=== PATIENT | female | born 1945 | race Caucasian/White ===

== ENCOUNTER 2018-03-04 02:26 | Outpatient (CLI) | payer BC, SELFPAY ==
--- NOTE | 2018-03-04 10:45 | DI.MRI_ITS ---
SYMPTOMS/DIAGNOSIS: CERVICAL RADICULOPATHY MRI OF THE CERVICAL SPINE: Routine noncontrast examination was performed. There is normal signal in the spinal cord. No evidence of tonsillar ectopia is seen. At C7-T1, there is no focal disc herniation, central spinal canal or neural foraminal stenosis. At C6-C7, there is prominence of the osteophyte-disc complex, which projects into the central spinal canal. There is mild narrowing of the central spinal canal. There is CSF surrounding the posterior aspect of the spinal cord. No significant neural foraminal stenosis is seen. At C5-C6, there is prominence of the osteophyte-disc complex and effacement of the anterior subarachnoid space. There is CSF seen surrounding the spinal cord. No significant neural foraminal stenosis is seen. At C4-C5, no focal disc herniation, central spinal canal or neural foraminal stenosis is present. At C3-C4, there are hypertrophic changes of the right uncovertebral joint causing mild to moderate right neural foraminal stenosis. No central spinal canal or left neural foraminal stenosis is present. At C2-C3, there is prominence of the left uncovertebral joint, but no significant central spinal canal or neural foraminal stenosis results. Apart from the degenerative endplate signal changes in the cervical spine, marrow signal is within normal limits. IMPRESSION: Multilevel cervical spondylosis. Mild to moderate right neural foraminal stenosis at C3-C4.
== END 2018-03-04 02:46 ==
PROVIDERS: PCP Family Medicine; Visit Provider Family Medicine
DX: M54.12 Radiculopathy, cervical region (principal); M47.22 Other spondylosis with radiculopathy, cervical region; M48.02 Spinal stenosis, cervical region
CPT/HCPCS: 72141

== ENCOUNTER 2018-03-26 15:07 | Outpatient (REF) | payer BC, SELFPAY ==
[2018-03-26 20:01] LABS: Anion Gap 7.7 mmol/L (3-11); BUN 27 mg/dL (7-18); CO2 30.3 mmol/L (21.0-32.0); CREATININE 0.68 mg/dL (0.55-1.02); Calcium 8.4 mg/dL (8.5-10.1); Chloride 106 mmol/L (98-107); Glucose 130 mg/dL (70-100); LDL CHOLESTEROL 104 mg/dL (<100); Potassium 4.4 mmol/L (3.5-5.1); Sodium 144 mmol/L (136-145); TSH 3.11 uIU/mL (0.358-3.74)
== END 2018-03-26 15:27 ==
LOC: NCHCN 15:07
PROVIDERS: PCP Family Medicine; Visit Provider Internal Medicine
DX: E66.9 Obesity, unspecified (principal)
CPT/HCPCS: 80048; 83721; 84443

== ENCOUNTER 2018-05-07 16:42 | Outpatient (REF) | payer BC, SELFPAY ==
[2018-05-07 20:08] LABS: Uric Acid 2.6 mg/dL (2.6-6.0)
[2018-05-07 20:40] LABS: ESR 9 MM/HR (0-30)
[2018-05-08 16:15] LABS: CRP, High Sensitivity 0.85 mg/L
[2018-05-11 10:42] LABS: Rheumatoid Factor 8 IU/mL (<12.5)
== END 2018-05-07 17:02 ==
LOC: NCHCN 16:42
PROVIDERS: PCP Family Medicine; Visit Provider Internal Medicine
DX: R03.0 Elevated blood-pressure reading, without diagnosis of hypertension (principal); Z00.00 Encounter for general adult medical examination without abnormal findings; E66.9 Obesity, unspecified
CPT/HCPCS: 85652; 86141; 84550; 86431

== ENCOUNTER 2018-08-26 10:40 | Outpatient (CLI) | payer BC, SELFPAY ==
--- NOTE | 2018-08-26 10:16 | DI.RAD_ITS ---
SYMPTOMS/DIAGNOSIS: RIGHT ARM NUMBNESS, ? TOS RIGHT RIBS AND PA CHEST: No priors. The heart size and pulmonary vasculature are within normal limits. The lungs are clear. No effusions or pneumothoraces are identified. The visualized right ribs are unremarkable. IMPRESSION: Negative examination.
== END 2018-08-26 11:00 ==
PROVIDERS: PCP Internal Medicine; Visit Provider Student in an Organized Health Care Education/Training Program
DX: R20.0 Anesthesia of skin (principal)
CPT/HCPCS: 71046; 71100

== ENCOUNTER 2018-11-17 12:15 | Day surgery (SDC) | payer BC, SELFPAY ==
[2018-11-17 12:43] VITALS: BP 128/72; PULSE 65; RESP 16; TEMP 35.9; O2SAT 97
[2018-11-17] MEDS: Clindamycin 300 MG CAP 600 MG PO (13:31)
--- NOTE | 2018-11-17 13:35 | W.PM.DSUDISC ---
Discharge Plan Disposition Patient Disposition: HOME Condition: Good Discharge Details Reason For Visit: ECTR Attending Provider: Cassius Obando Primary Care Provider: Glynn Eubanks Home Meds and New Rx's Prescriptions: New hydrocodone-acetaminophen 5-325 mg tablet 1 tab PO Q4H PRN (Reason: pain) Qty: 6 RF: 0 acetaminophen 500 mg tablet 500 mg PO Q6H PRN PRN (Reason: pain) Qty: 60 RF: 3 ibuprofen 600 mg tablet 600 mg PO TID PRNQty: 60 RF: 3 Continued multivitamin tablet 1 tab PO DAILY RF: 0 aspirin 650 mg Tablet,Delayed Release (Dr/Ec) 650 mg PO PRNRF: 0 Discontinued ibuprofen 800 mg tablet 800 mg PO PRN RF: 0 Discharge Instructions Stand Alone Forms: Gisella Degroot Tunnel Release Referrals: Cassius Obando MD [ [facility] STAFF PHYSICIAN] - Equipment/Supplies: Sling Activity:: Elevate Remove Dressings/Wound Care:: 48 hours Shower/Bathe:: 48 hours Diet:: As Tolerated Discharge Orders Discharge Orders: Discharge Order (Routine); Ordered 11/17/18 Ordered By: Cassius Obando DS: Diagnosis Discharge Diagnosis (1) Right carpal tunnel syndrome: Status: Acute
[2018-11-17] MEDS: Lidocaine 1% Multi-Dose 50 ML VIAL (13:45)
[2018-11-17] MEDS: Sodium Bicarbonate 50 MEQ/50 ML VIAL (13:45)
--- NOTE | 2018-11-19 07:19 | ROE_ITS ---
Date of service: 11/17/18 Time of Service: 13:16 Operative Note DATE OF PROCEDURE: 11/17/18 PRE-OP DIAGNOSIS: Right Carpal Tunnel Syndrome POST-OP DIAGNOSIS: same PROCEDURE: Right Endoscopic Carpal Tunnel Release SURGEON: Cassius Obando ANESTHESIA: local ESTIMATED BLOOD LOSS: 0 PATHOLOGY: none sent TOURNIQUET TIME: 5 COMPLICATIONS: None Patient was transported to: same day Patient's condition: stable Indications: I have seen Lorelei in clinic for symptoms of carpal tunnel syndrome. The numbness, tingling, and pain limited function. Clinical exam findings with nerve conduction tests confirmed the diagnosis of carpal tunnel syndrome. Nonoperative measures such as bracing, time, activity modifications had been tried but disability and pain persisted. I discussed carpal tunnel release with the patient. I reviewed the risks of the procedure to include, but not limited to, bleeding, infection, pain, stiffness, incomplete release, damage to nerves or vessels, persistent numbness, recurrence. Despite these risks, the patient elected to proceed. Findings: There was tightened carpal tunnel. This was dilated and released successfully with the endoscopic with increased space within the tunnel. The antebrachial fascia was released proximally freeing the median nerve at the wrist. Procedure Description: Lorelei was greeted in the preoperative holding area where the correct side was identified and marked. The consent was reviewed with the patient and signed. The history and physical was updated. All questions were answered. Lorelei was taken back to the operating room. The patient was placed into the supine position on the operating room table with the right arm on an arm board. A nonsterile tourniquet was placed high onto the arm. All bony prominences were well padded. Prophylactic antibiotics in the form of Clindamycin were administered. The right arm was then prepped with Chloraprep and draped in a standard fashion with stockinette and extremity drape. A timeout to confirm correct identity, side and site, procedure, allergies, anesthesia, and medical concerns was performed. The surgical site was marked in the volar wrist creases in line with the radial border of the fourth ray. This area was anesthetized with approximately 6cc of 1% Lidocaine. The limb was then exsanguinated with an Esmarch. The skin was incised with a 15 blade, approximately 1cm. The skin only was cut and the deeper tissue was dissected bluntly with a tenotomy scissor, avoiding passing nerve and venous structures. The fascia was penetrated and opened bluntly. A two-prong skin hook was placed under this proximal fascial edge. A series of hamate finders were used to identify and dilate the carpal tunnel. Synovial elevator was used to free synovial attachments to the underside of the transverse carpal ligament. My thumb was kept in the palm to gloria the distal extent of the carpal tunnel and correctly position the hand. The Microaire endoscope was inserted without difficulty and without resistance. Excellent visualization showed horizontally running fibers of the transverse carpal ligament (TCL). The distal extent of the TCL was visualized and the end of the scope palpated with the thumb. The blade was elevated and withdrawn from distal to proximal. The TCL was split into two flaps. The endoscope was reinserted to confirm complete release and any remnant ligament was incised. The scope was withdrawn and the proximal aspect of the carpal tunnel was grossly inspected and appeared release with the median nerve visible. The antebrachial fascia at the level of the wrist was then freed from the overlying skin and then the underlying median nerve with blunt dissection. This was transected longitudinally for about 3cm proximal to the wrist incision. The wound was then irrigated with easy flow of irrigant distally and proximally. The incision was closed with a single 4-0 Nylon suture. The wound was dressed with Xeroform, Gauze, Kerlix and Gerard. The tourniquet was deflated with the initial dressing and held with some pressure. Blood flow returned easily to all digits with capillary refill less than 2 seconds. The patient tolerated the procedure well and was returned to the Same Day Surgery area in a stable c ondition suffering no known complication.
== END 2018-11-17 14:38 | disposition home or self-care (01) ==
PROVIDERS: PCP Internal Medicine; Visit Provider Student in an Organized Health Care Education/Training Program
PROC: 01N54ZZ Release Median Nerve, Percutaneous Endoscopic Approach (ICD-10-PCS; CPT 29848; principal; 2018-11-17 13:45)
DX: G56.01 Carpal tunnel syndrome, right upper limb (principal)
CPT/HCPCS: 29848; L3650

== ENCOUNTER 2018-12-07 14:57 | Outpatient (CLI) | payer BC, SELFPAY ==
--- NOTE | 2018-12-07 14:45 | DI.RAD_ITS ---
SYMPTOM/DIAGNOSIS: F/U LT KNEE DJD LEFT KNEE: Two views were performed. There is severe narrowing of the medial femoral tibial joint with varus angulation. There is periarticular spurring as well as sclerosis of the chondral cyst formation. Spurring is also seen at the lateral femoral condyle and patellofemoral joint. IMPRESSION: Severe degenerative changes of the medial femoral tibial joint.
--- NOTE | 2018-12-07 14:45 | DI.RAD_ITS ---
SYMPTOM/DIAGNOSIS: F/U LEFT KNEE DJD STANDING ALIGNMENT: AP views were performed from above the iliac crest through the ankles. The hip joint spaces are well maintained. There is mild acetabular spurring. At the level of the femoral heads there is approximately 10 mm of leg length discrepancy, with the femoral head projecting higher than the left. There is narrowing of the medial femoral tibial joint space of the knees, left greater than right. There are mild degenerative changes of both ankles. IMPRESSION: Severe degenerative changes of the medial femoral tibial joint of the left knee and leg length discrepancy.
== END 2018-12-07 15:17 ==
PROVIDERS: PCP Internal Medicine; Visit Provider Student in an Organized Health Care Education/Training Program
DX: M17.12 Unilateral primary osteoarthritis, left knee (principal); M21.70 Unequal limb length (acquired), unspecified site
CPT/HCPCS: 73560; 77073

== ENCOUNTER 2019-01-28 14:03 | Outpatient (CLI) | payer BC, SELFPAY ==
--- NOTE | 2019-01-28 14:04 | HPE_ITS ---
Date of service: 01/28/19 Assessment and Plan (1) Arthritis of left knee: Current visit: Yes Status: Chronic Left total knee replacement. Details of surgery were discussed with patient as well as risks and pertinent anatomy. All questions were answered. History of Present Illness Chief Complaint: Left knee pain Narrative: Lorelei is a 73-year-old female who comes in today for preop history and physical for a left total knee replacement. She has had pain in her left knee for many years now, but it has been getting worse over the last year or 2. She states that she has pain whenever she is on her feet for long periods of time, but he gets much worse when she is walking downstairs. She has done physical therapy which has not helped but the pain, but she feels as though has kept her range of motion pretty good. Anti- inflammatories do help somewhat with pain relief, but they do not bring the pain down to an acceptable level. She thinks she has tried injections in the past, and they have not been specifically effective. She has had x-rays taken which show severe arthritis especially in the medial compartment with a complete loss of joint space in the medial compartment. She has a varus type deformity to her knee. There are degenerative changes throughout the knee as well in the lateral compartment and patellofemoral compartment. Since she has exhausted all conservative treatments at this time, Dr. Obando does offer a left total knee replacement, and she is anxious to proceed. Pertinent Surgical Information Lorelei has taken pain medicine in the past for previous surgeries, and states that she does not like the way Percocet or Vicodin make her feel. She would prefer to use Dilaudid for pain management postop. She also states that she has an allergy to cephalosporins which give her a rash, so she would prefer not to have a cephalosporin for preop antibiotic. Her preop orders have been changed to vancomycin 1.5 g. Patient denies history of hypertension, CVA, ME, angina, asthma, COPD, renal or liver disorders, hepatitis, bleeding disorders, diabetes, immune or thyroid disorders. No complications from anesthesia. Review of Systems Constitutional Denies fever(s) ENT Denies dizziness and Denies sore throat Cardiovascular Denies chest pain, Denies palpitations and Denies dyspnea Respiratory Denies cough and Denies dyspnea Gastrointestinal Denies abdominal pain, Denies melena, Denies hematochezia, Denies diarrhea, Denies nausea and Denies vomiting Genitourinary Denies hematuria and Denies dysuria Neurologic Denies dizziness Endocrine Denies palpitations COUNTS INCLUDE 234 BEDS AT THE [facility] Medical History (Updated 01/28/19 @ 14:09 by ARNOL Tobias) Atrial fibrillation (Chronic) Borderline hypertension (Acute) Left foot drop (Acute) Surgical History (Updated 01/28/19 @ 14:08 by ARNOL Tobias) H/O lumbosacral spine surgery (Acute) History of hernia repair (Chronic) Right carpal tunnel syndrome (Inactive) S/P small bowel resection (Acute) Social History Smoking/Tobacco Use Status: Never Alcohol Intake: current Alcohol Intake frequency: holidays/special occasions only Alcohol type: wine Substance use type: does not use current occupation: Nurse - Works at [employer] Do you feel safe at home: Yes Do you feel safe in your relationship?: Yes Meds Home Medications Medication Instructions Recorded Confirmed Type multivitamin 1 tab PO DAILY 04/09/18 01/28/19 History aspirin 325 mg PO PRN 11/17/18 01/28/19 History ibuprofen 600 mg PO TID PRN #60 tab 11/17/18 01/28/19 Rx Allergies Allergy/AdvReac Type Severity Reaction Status Date / Time morphine Allergy Severe Verified 01/28/19 13:02 Penicillins Allergy Severe Anaphylaxsi Verified 01/28/19 13:02 s Cephalosporins Allergy Intermediate Skin Rash Verified 01/28/19 13:02 Exam [facility] Head: normocephalic and atraumatic General nose exam: no nasal discharge Throat: uvula midline and no uvular edema Other: soft palate rises symmetrically, no erythema Eyes Conjunctivae: conjunctivae normal Sclera: sclerae normal Pupils: PERRL Resp Effort & Inspection: normal respiratory effort Auscultation: clear to auscultation bilaterally and no wheezes Cardio Rate: regular rate Rhythm: regular rhythm Heart Sounds: S1 normal, S2 normal and no murmurs GI Palpation: soft, no hepatosplenomegaly and nontender Auscultation: normal bowel sounds
[2019-01-28 15:48] LABS: HCT 41.3 % (36.0-46.0); HGB 13.6 g/dL (12.0-15.5); Mean Corp. HGB Concentration 32.9 g/dL (32.0-36.0); Mean Corpuscular Hemoglobin 32.1 pg (27.0-33.0); Mean Corpuscular Volume 97.4 fL (80-95); Mean Platelet Volume 10.5 fL (8.0-11.0); Platelet Count 309 x1000/uL (130-400); RBC 4.24 m/cumm (4.00-5.20); RBC Distribution Width 13.1 % (11.7-14.6); White Blood Cell Count 7.28 k/cumm (4.4-10.8)
[2019-01-28 16:30] LABS: Anion Gap 8.8 mmol/L (3-11); BUN 21 mg/dL (7-18); CO2 28.2 mmol/L (21.0-32.0); CREATININE 0.75 mg/dL (0.55-1.02); Calcium 8.7 mg/dL (8.5-10.1); Chloride 106 mmol/L (98-107); Glucose 103 mg/dL (70-100); Potassium 4.2 mmol/L (3.5-5.1); Sodium 143 mmol/L (136-145)
== END 2019-01-28 14:23 ==
PROVIDERS: PCP Internal Medicine; Visit Provider Student in an Organized Health Care Education/Training Program
DX: M25.562 Pain in left knee (principal); M17.12 Unilateral primary osteoarthritis, left knee; Z01.812 Encounter for preprocedural laboratory examination; Z01.818 Encounter for other preprocedural examination
CPT/HCPCS: 36415; 80048; 85027; NC

== ENCOUNTER 2019-02-02 05:56 | Inpatient (IN) | payer BC, SELFPAY ==
[2019-01-28 14:10] VITALS: BP 112/72; PULSE 72; RESP 17; TEMP 37; O2SAT 98
[2019-01-28 15:59] VITALS: BP 112/72; PULSE 72; RESP 17; TEMP 37; O2SAT 98
[2019-02-02] VITALS (13 sets, daily range): BP systolic 89–142; BP diastolic 46–84; PULSE 59–75; RESP 12–22; TEMP 36–37; O2SAT 90–96
[2019-02-02] MEDS: Celecoxib 200 MG CAP 400 MG PO (06:28)
[2019-02-02] MEDS: Acetaminophen 500 MG TAB 1000 MG PO ×3 (06:28→19:04)
[2019-02-02] MEDS: Gabapentin 300 MG CAP PO ×2 (06:29→21:57)
[2019-02-02] MEDS: Lactated Ringers 1,000 ML 80 ML IV ×2 (06:29→22:00)
[2019-02-02] MEDS: Bupivacaine LIPOSOME/PF 133 MG/10 ML VIAL IJ ×2 (07:43→09:30)
[2019-02-02] MEDS: Bupivacaine 0.5% Pres-Free 30 ML VIAL (07:43)
[2019-02-02] MEDS: Ketorolac 30 MG/ML VIAL (09:30)
[2019-02-02] MEDS: Bupivacaine 0.25% Pres-Free 30 ML VIAL (09:30)
[2019-02-02] MEDS: Normal Saline 20 ML VIAL (09:31)
--- NOTE | 2019-02-02 11:46 | W.PM.OP ---
Date of service: 02/02/19 Time of Service: 10:10 Operative Note DATE OF PROCEDURE: 02/02/19 PRE-OP DIAGNOSIS: Left knee osteoarthritis POST-OP DIAGNOSIS: same PROCEDURE: Left Total Knee Replacement SURGEON: Cassius Obando VITREO RETINAL SURGEON: Nyla Schmidt ANESTHESIA: GETA and regional PATHOLOGY: none sent TOURNIQUET TIME: 34 COMPLICATIONS: None Patient was transported to: PACU Patient's condition: stable Implants: 1. Depuy Attune Posterior Stabilized Femoral Component, Size 6 Narrow 2. Depuy Attune Fixed Platform Tibial Component, Size 4 3. Depuy Attune 6x6 Fixed, Stabilized Poly 4. Depuy Attune Patellar Component, Size 38mm Indications: I have seen Lorelei in clinic for symptoms of left knee arthritis, confirmed with radiographic findings. She has exhausted nonoperative methods and was having significant limitations in daily function and desired better function and less pain. I discussed the technical details of a knee replacement. I explained the risks of the procedure to include, but not limited to, bleeding, infection, pain, stiffness, fracture, damage to nerves and vessels, damage to muscles and tendons, loosening, need for repeat procedure, blood clot and cardiopulmonary demise. Despite these risks, Lorelei elected to proceed. Findings: There was significant signs of arthritis throughout the knee. Procedure Description: Lorelei was greeted in the preoperative holding area where the correct side was identified and marked. The consent was reviewed with the patient and signed. The history and physical was updated. All questions were answered. Preoperative mediacations were administered: Acetaminophen 1000mg, Celebrex 400mg, and Gabapentin 300mg. An adductor canal block was then administered by the anesthesia team in the PACU. Lorelei was taken back to the operating room. A spinal anesthestic was then administered. While the spinal had good CSF flow it did not set up at the surgical location and she was converted to a general anesthetic. The patient was placed into the supine position on the operating room table. A nonsterile tourniquet was placed high onto the leg but only used for cementing. Posts were placed for positioning during the procedure. All bony prominences were well padded. Prophylactic antibiotics in the form of Vancomycin were administered. 1g of Tranxemic Acid was given intravenously within 30 minutes of incision. The left leg was then prepped with Chloraprep and draped in a standard fashion with impervious stockinette and extremity drape with Iodine impregnated skin protection. A timeout to confirm correct identity, side and site, procedure, allergies, anesthesia, and medical concerns was performed. With the knee in some flexion, a midline incision was made overlying the knee. Full thickness skin flaps were raised once the extensor mechanism was encountered. These were raised medially and laterally. Any bleeding was controlled with electrocautery. Once the extensor mechanism was fully exposed, a medial parapatellar arthrotomy was performed in a flexed position. All bleeding from the arthrotomy and the geniculate arteries was coagulated. A medial subperiosteal peel was performed with electrocautery to the midcoronal plane. Due to the significant varus deformity the entire medial tibial plateau was exposed. The fat pad was removed while keeping the patellar tendon protected. The anterior distal femur synovium was removed for later visualization. The ACL and PCL were resected and the anterior horn of the lateral meniscus was transected. The knee was then flexed with the patella everted. Large osteophytes from the tibia were removed. Large osteophytes from the femur were removed. Using a step drill, and based on preoperative templating, the femoral canal was entered. This was done with a step drill without any difficulty. The intramedullary distal femoral cut guide was inserted, set to a 5 degree valgus cut and 9mm cut thickness. The distal femoral cut guide was then held in position and pinned. With the soft tissues protected, the distal cut was performed. This was passed over a few times to ensure a planar cut. I then turned attention to the tibia. The extramedullary guide was placed onto the leg. The distal aspect was slid medial to adjust for position of center of ankle and stay in line with shaft of the tibia. Approximately 3-5 degrees of posterior slope was kept in the proximal cutting guide. The center of the guide was aligned with the PCL. The stylus was used to assess cut thickness. The medial side, most involved side, was set for a 4mm cut. This was then held in position and pinned into place with 2 additional pins and a cross pin for stability. The medial and lateral collateral ligaments were protected and the cut was performed. With this completed, it was assessed and noted to be of appropriate dimensions. The guide was removed. A spacer block was inserted and the knee was brought into extension. The 6mm spacer block provided full extension, without hyperextension and with stability of both the medial and lateral collateral ligaments was assessed. The pins from the femur and the tibia were then removed. The distal femur was then sized. The anterior stylus was placed onto the lateral ridge of the anterior femur. This indicated a size 6 femur. The external rotation of the guide was adjusted to 5 degrees to match the epicondylar axis, perpendicular to [place]?s line. The 4-in-1 cutting guide was the placed. The posterior medial femur cut was evaluated and appeared of good thickness. The spacer block was inserted underneath the cutting guide and stability was confirmed in 90 degrees of flexion. An ellis wing was used to confirm appropriate position of the anterior cut to avoid notching. This cutting guide was ensured to be flush on the cut surface and then pinned into place with headed pins. While protecting the soft tissues, quad tendon, and collateral ligaments, the anterior and posterior cuts were performed with a saw. The central two pins were removed and the posterior and anterior chamfers were cut next. The notch-cutting guide was placed. This was pinned to lateralize the femoral component as much as possible while keeping it flush on the cut surface. This was then pinned into position. A reciprocating saw was used to make the notch cut. A rasp smoothed the cut surfaces. A trial posterior stabilized femoral component was then inserted, impacted down to the cut surfaces, and the lug holes were drilled. A provisional trial tibial component was placed and the knee was brought through range of motion. There was noted to be excellent extension and flexion. There was no significant instability. The patella was tracking without thumbs. The tibial cut surface was fully exposed. The medial and lateral menisci were removed. The tibia was then sized as a 4. The tibia had been previously marked during trialing to correspond to the center of the tibial component to help with rotation. The trial was aligned to this gloria, approximately rotated to the medial 1/3rd of the tibial tubercle. The trial was pinned into place. The tibia was prepared with a reamer and a keel punch. The knee was then brought into extension and the patella was measured as 25mm. Using the patellar clamp and cut guide, this was resected to a flat surface with at least 13mm of thickness remaining. The size 38mm patella fit the best. This was oriented and then clamped into position. The lugs were drilled. The trial components were removed. The final components, except for the polyethylene were opened on the back table. The periosteal and capsular tissues, especially posteriorly, around the knee were then systematically injected with a periarticular cocktail consisting of 50cc 0.25% Marcaine, 30mg Ketorolac, 20cc of Exparal and 50cc of injectable saline. The tourniquet was then inflated to 275mmHg. The knee was thoroughly irrigated with a pulse lavage and dried. On the back table, with the implants opened, the cement was mixed. 2 batches of antibiotic laden cement were prepared with vacuum assistance. After the cement was ready a small amount was placed on to the back side of the tibial component at the keel. A small amount was placed onto the posterior flange of the femur. Cement was manual pressurized and impregnated into the cut surface of the tibia. The tibial component was then inserted into the cut surface and impacted into position. Excess cement was removed and the component was reimpacted. Again, excess cement was removed and our attention was then turned to the femur. The femoral cut surface was once again dried and cement was manually impacted into the cut surface. The femoral component was lined with the lug holes and impacted. Excess cement was removed. It was ensured to be down against the cut surface. The trial polyethylene was then inserted and the leg was brought out into full extension for the duration of the cement curing process, approximately 15min. Cement was lastly manually impacted into the cut surface of the patella and the patellar button was clamped into position and held. During this process attention was turned to the gutters of the knee and for all interfaces for any excess cement. After the cement had finally cured, approximately 15min, the clamp was removed from the patella and the knee was taken through range of motion. A size 6mm polyethylene component provided the best range of motion and stability with less than 2mm gapping with medial and lateral stress and full extension without significant hyperextension. The patella was tracking with a no-thumbs technique. The trial poly was removed and once again the knee was checked for any loose, excess, or errant cement. The poly component was then inserted and impacted into position after cleaning and drying the tibial tray. The capsule was then reapproximated with a No. 1 Vicryl at multiple locations. The capsule was finally closed with a No. 2 Stratafix, barbed suture. The tourniquet was then released and the arthrotomy appeared watertight without significant bleeding. The second dosing of 1g TXA was started. Deep tissues were then reapproximated with 0 Vicryl and 2-0 Vicryl. The skin was closed with a running 3-0 Monocryl in a subcuticular fashion. This was reinforced with skin glue. A Mepilex silver dressing was applied along with a [id number] BOB wrap. A CryoCuff was applied. Lorelei was transferred to the hospital bed without difficulty an suffering no apparent complication. Lorelei has a good prognosis. Physical therapy will start today and without restrictions, weight-bearing as tolerated. Aspirin 81mg BID will be used for DVT prophylaxis.
--- NOTE | 2019-02-02 14:45 | NUR.NOTE ---
Nursing Note: 11:16 pt transferred from pacu to med surg floor in regular bed. pts daughter with her. Blood pressure 92/55 and o2 sat 90% on room air.
[2019-02-02] MEDS: Normal Saline Flush 10 ML SYR IV ×2 (15:20→21:58)
--- NOTE | 2019-02-02 17:30 | IN_ITS ---
Date of service: 02/02/19 Time of Service: 14:24 PT Notes Inpatient Physical Therapy Evaluation Date: 02/01/2019 2 Referring Doctor: Cassius Obando MD PT Orders: PT CONSULT: S/P left TKA Precautions: Fall. Standard. WBAT on left LE. Patient Profile/Admitting Diagnosis: Patient is a 73-year-old female with primary osteoarthritis of left knee and is status post left total knee arthroplasty on postoperative day 0. PMHX: Medical History (Updated 01/28/19 @ 14:09 by ARNOL Tobias) Atrial fibrillation (Chronic) Borderline hypertension (Acute) Left foot drop (Acute) Surgical History (Updated 01/28/19 @ 14:08 by ARNOL Tobias) H/O lumbosacral spine surgery (Acute) History of hernia repair (Chronic) Right carpal tunnel syndrome (Inactive) S/P small bowel resection (Acute) Social History/Home Situation: Patient lives alone in a 1 floor house with 1 step up to enter without rails. 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 Current Functional Limitations: Need for an assistive device and physical assistance for all transfer and ambulation task performance Equipment Owned/DME: None Subjective: Patient is agreeable to a PT consult. Daughter present throughout session. She reports mild mostly concentrated on the anterior medial aspect of the left knee during weight bearing. She denies headache, chest pain, and dizziness throughout PT consult and treatment. She looks forward to going home the earliest tomorrow morning and stay here overnight in order to assess for response for when anesthesia effect fully wears off. After gait activity she is amazed at how much better she is able to perform pain-free. She looks forward to going back to work full-time as a nurse soon as she is allowed to. Objective: General Observation: Patient seen resting in bed with Cryo/Cuff on left knee. BOB wraps on left lower extremity. TEDS knee-high on the right side. IV in left UE. Antithromboembolic pump on R LE. Mental Status: Alert and oriented x4 Pain: 0/10 at rest. 1/10 with weight bearing concentrated on the anterior medial aspect of left knee ROM: Right Upper Extremity: Shoulder Flexion WFL. Shoulder abduction WFL. Elbow flexion WFL. Wrist flexion WFL. Functional opening and closing of hand WFL. Left Upper Extremity: Shoulder Flexion WFL. Shoulder abduction WFL. Elbow flexion WFL. Wrist flexion WFL. Functional opening and closing of hand WFL. Right Lower Extremity: Hip flexion WFL. Hip abduction WFL. Knee flexion WFL. Ankle dorsiflexion WFL. Ankle plantarflexion WFL. Left Lower Extremity: Hip flexion allows up to 20 degrees beyond horizontal plane while patient is seated at edge of bed. Hip abduction WFL. Knee flexion 0- 90 degrees while seated at edge of bed with left knee suspended, ACD wraps l imiting end of range. Knee extension -5 with mild felt at end of range. Ankle dorsiflexion WFL. Ankle plantarflexion WFL. Strength: Right Upper Extremity: Shoulder flexors 5/5. Shoulder abductors 5/5. Elbow flexors 5/5. Elbow extensors 5/5. Artistic Associate strong. Left Upper Extremity: Shoulder flexors 5/5. Shoulder abductors 5/5. Elbow flexors 5/5. Elbow extensors 5/5. Artistic Associate strong. Right Lower Extremity: Hip flexors 5/5. Hip abductors 5/5. Knee flexors 5/5. Knee extensors 5/5. Ankle dorsiflexors 5/5. Ankle plantarflexors 5/5. Left Lower Extremity:Hip flexors 3-/5. Hip abductors 4/5. Knee flexors 4/5. Knee extensors 3-/5. Ankle dorsiflexors 4/5. Ankle plantarflexors 4/5.Hip flexors 5/5. Sensation: Diminished as to pain and pressure on the left lower extremity from the knee down. Intact on the right LE. Bed Mobility/Transfers: Rolling supervision Supine to sit supervision Sit to supine supervision Sit to stand CGA Stand to sit CGA Bed to chair CGA Chair to bed CGA Gait: Patient was able to tolerate level surface ambulation of 150 feet with front-wheeled walker with CGA and IV pole management of PT and wheelchair follow of daughter initially with patient doing step to gait pattern but then eventually with step through gait pattern without LOB but with minimal L knee buckle at end of activity that patient was able to catch right away. Patient was able to demonstrate full knee extension during mid stance on the left and adequate functional knee flexion throughout swing phase on the left LE. Patient denies shortness of breath, headache, chest pain, and dizziness throughout gait activity. Balance: Static Sitting: Normal Dynamic Sitting: Normal Static Standing: Good Dynamic Standing: Fair Special Tests: Mobility Limitations Standardized Measure [facility] AM-PAC 6 clicks Basic Mobility Inpatient Short Form: Raw Score: 21 CMS Score: 22%deficit Informed Consent/Education: Patient instructed in purpose of PT consult and plan of care. Patient was also educated and trained on performing a ankle pumping x30, bilateral quadriceps setting for 5 months x 10, and heel slides on the left held for 5 counts at the end of range x10. Left knee pain good alignment Assessment: Patient presents with clinical signs and symptoms consistent with current/admitting diagnoses that have resulted to mobility limitations, gait instability, generalized weakness, and impairment of motor control as demonstrated by the following impairment level findings: 1. Decreased strength to B LE major muscle groups 2. Impaired sitting/standing balance 3. Impaired activity tolerance 4. Limitation of joint range of motion in [] Impairments are contributing to the following functional limitations: 1. Dependent bed mobility skills 2. Increased dependence with transfers 3. Inability to safely ambulate without assistive device and physical assistance 4. Increase completion time for mobility ADL performance 5. Increased fall risk 6. Inability to negotiate steps alone safely Patient is assessed as a [] complexity based on the following: History: [] Examination: Demonstrable impairment in strength, balance, and range of motion with underlying impairments and functional limitations as documented above Presentation:Evolving Decision Making: [] Goals: Goals X1 week 1. Supine-Sit independent 2. Sit-Supine independent 3. Sit-Stand independent 4. Stand-Sit independent 5. Bed-Chair independent 6. Chair-Bed independent 7. Independent gait on level surface with use of least restrictive device for at least 300 feet without report of pain nor dyspnea 8. Independent stair negotiation while holding onto bilateral rails for at least 10 steps without report of pain nor dyspnea 9. Independent with home exercise program 10. Good static and dynamic standing balance/tolerance Plan of Care/Treatment Plan: 1-2x/day, 7 days/week x 1 week. Plan of care has been reviewed with the PC ANALYST providing the service under Physical Therapy direction. Initiate Physical Therapy intervention for strengthening, bed mobility, transfers, gait, stairs, balance training, use of assistive device. DISCHARGE RECOMMENDATIONS: May benefit from skilled physical therapy services according to orthopedic surgeon's timeline recommendations. Patient will be educated and trained on home exercise program per TKA exercise protocol in preparation for outpatient physical therapy services. TREATMENT CODE/TIME: 45110 x 25 minutes, 9753 0 x 26 minutes, beginning at 2039 Thank you very much for this referral. Rosa Damon PT, DPT, CLT [facility]
[2019-02-02] MEDS: Ondansetron 4 MG/2 ML VIAL IVP ×2 (17:31→21:58)
[2019-02-02] MEDS: Celecoxib 100 MG CAP 200 MG PO (19:04)
[2019-02-02] MEDS: Aspirin E.C. 325 MG TABEC PO (20:57)
[2019-02-02] MEDS: HYDROmorphone 2 MG TAB PO (21:57)
[2019-02-03 01:01] VITALS: BP 106/60; PULSE 61; RESP 18; TEMP 36.7; O2SAT 95
[2019-02-03] MEDS: HYDROmorphone 2 MG/ML VIAL 0.5 MG IVP ×2 (01:01→06:55)
[2019-02-03] MEDS: Normal Saline Flush 10 ML SYR IV ×2 (01:01→06:55)
[2019-02-03] MEDS: Pantoprazole 40 MG TABCR PO (06:55)
[2019-02-03 07:20] VITALS: BP 114/67; PULSE 60; RESP 18; TEMP 36.5; O2SAT 94
--- NOTE | 2019-02-03 07:28 | W.PM.DS.N ---
Date of service: 02/03/19 Time of Service: 07:28 DS: Diagnosis Discharge Diagnosis (1) Arthritis of left knee: Status: Chronic Discharge Plan Disposition Patient Disposition: HOME Condition: Good Discharge Details Reason For Visit: (L) KNEE DJD Admit Date/Time: 02/02/19 05:56 Admit Provider: Cassius Obando Attending Provider: Cassius Obando Primary Care Provider: Glynn Eubanks [facility] Course Hospital Course: Patient was admitted to the medical/surgical floor following the procedure. It was tolerated well without any notable medical, surgical, or anesthetic complications. Mobilization began postoperatively. The luther catheter was removed and voiding spontaneously. Vitals were stable. Physical therapy worked with the patient and was cleared for discharge home. No acute medical issues. Home Meds and New Rx's Prescriptions: New celecoxib 200 mg capsule 200 mg PO BID PRN (Reason: pain) Qty: 60 RF: 1 acetaminophen 500 mg tablet 1,000 mg PO Q8H PRN (Reason: pain) Qty: 90 RF: 3 hydromorphone 2 mg tablet 2 mg PO Q4H PRN (Reason: pain) Qty: 15 RF: 0 Continued multivitamin tablet 1 tab PO DAILY RF: 0 Changed aspirin 650 mg Tablet,Delayed Release (Dr/Ec) 325 mg PO DAILY Qty: 0 RF: 0 Discontinued ibuprofen 600 mg tablet 600 mg PO TID PRNQty: 60 RF: 3 Discharge Instructions Additional Instructions: Dr. Obando?s Total Knee Discharge Instructions Activity: The most important activity is to walk. You should try to take short walks a few times a day, at least 4-6. It is important that when resting you work on keeping the knee straight. Avoid putting a pillow behind the knee as this will encourage flexion. Work on range of motion exercises as provided by Physical Therapy. - Start outpatient physical therapy within 2 weeks. - You should wear the RUBY hose on both legs for 2 weeks. Dressing: Keep the surgical dressing in place for at least one week. After the first week it may be removed and replace with light gauze and tape or nothing. It may get wet after 3 days but avoid soaking the dressing. If it gets wet, just lightly pat dry. Medications: - You should take Tylenol and anti-inflammatory Celebrex as your primary pain control medications. If Celebrex is not covered or too costly, please call Dr. Obando and you can take 600mg Ibuprofen three times a day instead. - You have been prescribed a stronger pain medication Hydromorphone for breakthrough pain, take as needed as prescribed. - You will be taking Aspirin 325mg once a day for DVT prevention - If you have constipation you should take Colace or Miralax (both [id number]). It takes most people 3-4 days to have a bowel movement. Follow-up: 2 weeks Referrals: Cassius Obando MD [ [facility] STAFF PHYSICIAN] - Activity:: Activity as Tolerated Equipment/Supplies:: Walker Diet:: As Tolerated Discharge Orders Discharge Orders: Discharge Order (Routine); Ordered 02/03/19 Ordered By: Cassius Obando DS: Data Vitals/I&O Vitals and I&O: Vital Signs Temperature 36.7 C 02/03/19 01:01 Temperature Source Tympanic 02/03/19 01:01 Pulse 61 02/03/19 01:01 Pulse Rhythm Regular 02/02/19 20:57 Respiratory Rate 18 02/03/19 01:01 Respiratory Effort Non-Labored 02/02/19 20:57 Respiratory Depth Normal 02/02/19 20:57 Respiratory Pattern Normal 02/02/19 20:57 Blood Pressure 106/60 02/03/19 01:01 Pulse Oximetry 95 02/03/19 01:01 Respiratory End-tidal CO2 31 02/02/19 10:55 Oxygen Delivery Method Room Air 02/03/19 01:01 Oxygen Flow Rate 0 02/03/19 01:01 Pain Level 3 02/03/19 01:01 Intake & Output 02/02/19 02/02/19 02/03/19 11:59 23:59 11:59 Intake Total 1080 / 2200 1120 / 2200 Output Total 600 / 1900 1300 / 1900 800 / 800 Balance 480 / 300 -180 / 300 -800 / -800 Weight 100.1 kg Intake: IV 980 / 1380 400 / 1380 Oral 100 / 820 720 / 820 Output: Urine 400 / 1700 1300 / 1700 800 / 800 Estimated Blood Loss 200 / 200 Other: Urine Color Yellow Pale Pale Yellow Yellow Urine Appearance Clear Clear Emesis Description None [facility] Medical History Atrial fibrillation (Chronic) Borderline hypertension (Acute) Left foot drop (Acute) Surgical History H/O lumbosacral spine surgery (Acute) History of hernia repair (Chronic) Right carpal tunnel syndrome (Inactive) S/P small bowel resection (Acute) Family History Mother Heart disease Lung cancer Sister Angiosarcoma Father Heart disease Social History Smoking/Tobacco Use Status: Never Alcohol Intake: current Alcohol Intake frequency: holidays/special occasions only Alcohol type: wine Drug use: Never Substance use type: does not use current occupation: Nurse - Works at [employer] Do you feel safe at home: Yes Do you feel safe in your relationship?: Yes
[2019-02-03] MEDS: Aspirin E.C. 325 MG TABEC PO (08:07)
[2019-02-03] MEDS: Multivitamin TAB 1 TAB PO (08:07)
[2019-02-03] MEDS: Acetaminophen 500 MG TAB 1000 MG PO (08:07)
[2019-02-03] MEDS: Celecoxib 100 MG CAP 200 MG PO (08:08)
[2019-02-03] MEDS: HYDROmorphone 2 MG TAB PO (09:45)
--- NOTE | 2019-02-03 11:22 | PT.INTREAT ---
Date of service: 02/03/19 Time of Service: 11:22 PT Notes Inpatient Physical Therapy Treatment Note [facility] Date: 02/03/19 PRECAUTIONS: Fall, WBAT L SUBJECTIVE: Lorelei states that she is feeling pretty good today. She reports that she has been performing her exercises independently. OBJECTIVE: PAIN: Patient c/o stiffness in L knee with gait training BED MOBILITY/TRANSFERS Supine-sit: I with HOB flat Sit-supine: I with HOB flat Sit-stand: S Stand-sit: S GAIT Assistive Device: FWW Weight bearing: WBAT L Assist: SBA Distance: 80' x2 Deviation: Step-through gait pattern THEREX: Patient completed a LE strengthening and stabilization program, in a supine position, including SLR x10, as per flow sheet. STAIRS: Up/down 6x4 and 4x6 using B axillary crutches and a step-to pattern with CGA-SBA ASSESSMENT: Patient tolerated session well with minimal c/o L LE stiffness with gait training. She was able to tolerate the addition of stair training, well, using B axillary crutches. PLAN: As per primary PT TREATMENT CODE/TIME: 45 minutes; 11645 x2, 21958
--- NOTE | 2019-02-04 16:59 | PT.INDS ---
Date of service: 02/04/19 Time of Service: 16:59 PT Notes Inpatient Physical Therapy Discharge Summary Dates: 02/04/2019 Dates of Service: 02/02/2019 and 02/03/2019 Referring Doctor: Cassius Obando MD PT Orders: PT CONSULT: S/P left TKA Precautions: Fall. Standard. WBAT on left LE. Patient Profile/Admitting Diagnosis: Patient is a 73-year-old female with primary osteoarthritis of left knee and is status post left total knee arthroplasty on postoperative day 0. PMHX: Medical History (Updated 01/28/19 @ 14:09 by ARNOL Tobias) Atrial fibrillation (Chronic) Borderline hypertension (Acute) Left foot drop (Acute) Surgical History (Updated 01/28/19 @ 14:08 by ARNOL Tobias) H/O lumbosacral spine surgery (Acute) History of hernia repair (Chronic) Right carpal tunnel syndrome (Inactive) S/P small bowel resection (Acute) Social History/Home Situation: Patient lives alone in a 1 floor house with 1 step up to enter without rails. 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 Current Functional Limitations: Need for an assistive device and physical assistance for all transfer and ambulation task performance Equipment Owned/DME: None Subjective: NT Objective: General Observation: NT Mental Status: NT Pain: NT ROM: Right Upper Extremity: Shoulder Flexion WFL. Shoulder abduction WFL. Elbow flexion WFL. Wrist flexion WFL. Functional opening and closing of hand WFL. Left Upper Extremity: Shoulder Flexion WFL. Shoulder abduction WFL. Elbow flexion WFL. Wrist flexion WFL. Functional opening and closing of hand WFL. Right Lower Extremity: Hip flexion WFL. Hip abduction WFL. Knee flexion WFL. Ankle dorsiflexion WFL. Ankle plantarflexion WFL. Left Lower Extremity: Hip flexion allows up to 20 degrees beyond horizontal plane while patient is seated at edge of bed. Hip abduction WFL. Knee flexion 0-90 degrees while seated at edge of bed with left knee suspended, ACD wraps limiting end of range. Knee extension -5 with mild felt at end of range. Ankle dorsiflexion WFL. Ankle plantarflexion WFL. Strength: Right Upper Extremity: Shoulder flexors 5/5. Shoulder abductors 5/5. Elbow flexors 5/5. Elbow extensors 5/5. Proteomics Scientist strong. Left Upper Extremity: Shoulder flexors 5/5. Shoulder abductors 5/5. Elbow flexors 5/5. Elbow extensors 5/5. Proteomics Scientist strong. Right Lower Extremity: Hip flexors 5/5. Hip abductors 5/5. Knee flexors 5/5. Knee extensors 5/5. Ankle dorsiflexors 5/5. Ankle plantarflexors 5/5. Left Lower Extremity:Hip flexors 3-/5. Hip abductors 4/5. Knee flexors 4/5. Knee extensors 3-/5. Ankle dorsiflexors 4/5. Ankle plantarflexors 4/5.Hip flexors 5/5. Sensation: Diminished as to pain and pressure on the left lower extremity from the knee down. Intact on the right LE. Bed Mobility/Transfers: Rolling independent Supine to sit independent Sit to supine independent Sit to stand supervision Stand to sit supervision Bed to chair supervision Chair to bed supervision Gait: Patient was able to tolerate level surface ambulation of 80 feet with front-wheeled walker with SBA. Up-and-down 3 six 4 inch steps and four 6 inch steps while holding onto bilateral axillary crutches using step to gait pattern with CGA. Balance: Static Sitting: Normal Dynamic Sitting: Normal Static Standing: Good Dynamic Standing: Fair Assessment: Patient presents with clinical signs and symptoms consistent with current/admitting diagnoses that have resulted to mobility limitations, gait instability, generalized weakness, and impairment of motor control as demonstrated by the following impairment level findings: 1. Decreased strength to B LE major muscle groups 2. Impaired sitting/standing balance 3. Impaired activity tolerance Impairments are contributing to the following functional limitations: 1. Dependent bed mobility skills 2. Increased dependence with transfers 3. Inability to safely ambulate without assistive device and physical assistance 4. Increase completion time for mobility ADL performance 5. Increased fall risk 6. Inability to negotiate steps alone safely Goals: Goals X1 week 1. Supine-Sit independent MET 2. Sit-Supine independent MET 3. Sit-Stand independent NOT MET 4. Stand-Sit independent NOT MET 5. Bed-Chair independent NOT MET 6. Chair-Bed independent NOT MET 7. Independent gait on level surface with use of least restrictive device for at least 300 feet without report of pain nor dyspnea NOT MET 8. Independent stair negotiation while holding onto bilateral rails for at least 10 steps without report of pain nor dyspnea NOT MET 9. Independent with home exercise program NOT MET 10. Good static and dynamic standing balance/tolerance NOT MET DISCHARGE RECOMMENDATIONS: May benefit from skilled physical therapy services according to orthopedic surgeon's timeline recommendations. Patient will be educated and trained on home exercise program per TKA exercise protocol in preparation for outpatient physical therapy services. TREATMENT CODE/TIME: NC. Thank you very much for this referral. Rosa Damon PT, DPT, CLT [facility]
== END 2019-02-03 09:46 | disposition home or self-care (01) | DRG 470 ==
LOC: PDS 05:57 → MS 10:56
PROVIDERS: Admitting Provider Student in an Organized Health Care Education/Training Program; PCP Internal Medicine; Visit Provider Student in an Organized Health Care Education/Training Program
PROC: 0SRD0J9 Replacement of Left Knee Joint with Synthetic Substitute, Cemented, Open Approach (ICD-10-PCS; CPT 27447; principal; 2019-02-02 07:30)
DX: M17.12 Unilateral primary osteoarthritis, left knee (principal); M25.562 Pain in left knee; M21.162 Varus deformity, not elsewhere classified, left knee; G89.18 Other acute postprocedural pain
CPT/HCPCS: 27447; 76942; 97110; 97162; 97530; NC; 93005; 93010; J1100; J1885; J2370; J2405; J3370

== ENCOUNTER 2019-02-15 12:09 | Outpatient (CLI) | payer BC, SELFPAY ==
--- NOTE | 2019-02-15 12:04 | DI.RAD_ITS ---
SYMPTOM/DIAGNOSIS: 1ST POST OP STANDING ALIGNMENT: Standing AP views were performed from above the iliac crest through the ankles. There is a left total knee prosthesis. The left femur is shorter than the right. There is a leg length discrepancy at the level of the femoral heads with the right femoral head projecting 15 mm superior to the left. The hip joints show mild acetabular spurring, greater on the left. There are mild to moderate degenerative changes of the medial femoral tibial joint of the right knee. Mild to moderate degenerative changes were also seen in both ankles.
--- NOTE | 2019-02-15 12:04 | DI.RAD_ITS ---
SYMPTOM/DIAGNOSIS: 1ST POST OP LEFT KNEE: There is a total knee prosthesis. No abnormal bony lucencies are seen. No joint effusion is visible.
== END 2019-02-15 12:29 ==
PROVIDERS: PCP Internal Medicine; Visit Provider Student in an Organized Health Care Education/Training Program
DX: Z96.652 Presence of left artificial knee joint (principal); M17.12 Unilateral primary osteoarthritis, left knee; Z47.1 Aftercare following joint replacement surgery; M17.11 Unilateral primary osteoarthritis, right knee; M21.70 Unequal limb length (acquired), unspecified site
CPT/HCPCS: 73560; 77073

== ENCOUNTER 2019-10-25 15:32 | Outpatient (REF) | payer BC, SELFPAY ==
--- NOTE | 2019-10-25 13:45 | SKI_PTH ---
PATIENT: Lorelei Lara LOC: [facility] U#:[id number] AGE/SX: 74/F ROOM: RE10/25/[address]: Glynn Eubanks : 1945 BED: DIS: 10/25/2019 SPEC #: [id number] RECD: 10/26/19 09:37 STATUS: EMELIA RERuss #: [id number] VIVI: 10/25/19 13:[address]: Glynn Eubanks DEPT: Surgical Specimen RECD BY: Brenden Davis Tissues: 1 - SKIN BIOPSY(SHAVE/PUNCH) Procedures: IMMUNOPEROXIDASE STAIN SKIN LEVEL 4 Comments: [id number]
== END 2019-10-25 15:52 ==
LOC: NCHCN 15:32
PROVIDERS: PCP Internal Medicine; Visit Provider Internal Medicine
DX: D48.5 Neoplasm of uncertain behavior of skin (principal)
CPT/HCPCS: 88305; 88361

== ENCOUNTER 2019-11-05 13:27 | Outpatient (REF) | payer BC, SELFPAY ==
[2019-11-05 19:16] LABS: INR 0.9 (0.9-1.1); Prothrombin Time 9.5 sec (9.3-11.0)
[2019-11-05 19:58] LABS: ALT 23 U/L (14-59); AST 15 U/L (15-37); Albumin 3.8 g/dL (3.4-5.0); Alkaline Phosphatase 43 U/L (46-116); Anion Gap 3.7 mmol/L (3-11); BUN 25 mg/dL (7-18); Bilirubin, Total 0.4 mg/dL (0.2-1.0); CO2 30.3 mmol/L (21.0-32.0); CREATININE 0.74 mg/dL (0.55-1.02); Calcium 9.1 mg/dL (8.5-10.1); Chloride 106 mmol/L (98-107); Glucose 98 mg/dL (74-106); LDH 170 U/L (81-234); Potassium 4.3 mmol/L (3.5-5.1); Sodium 140 mmol/L (136-145); Total Protein 7.1 g/dL (6.4-8.2)
[2019-11-05 20:09] LABS: Abs Immature Grans 0.01 k/cumm (0.0-0.09); Absolute Basophil Count 0.04 k/cumm (0.0-0.2); Absolute Eosinophil Count 0.59 k/cumm (0.0-0.7); Absolute Lymphocyte Count 3.08 k/cumm (1.2-3.4); Absolute Monocyte Count 0.69 k/cumm (0.11-0.7); Absolute Neutrophil Count 2.85 k/cumm (1.2-6.7); Basophils % 0.6; Eosinophils % 8.1; HCT 39.6 % (36.0-46.0); HGB 13.5 g/dL (12.0-15.5); Immature Grans % 0.1 %; Lymphocytes % 42.4; Mean Corp. HGB Concentration 34.1 g/dL (32.0-36.0); Mean Corpuscular Volume 96.8 fL (80-95); Mean Platelet Volume 11.3 fL (8.0-11.0); Monocytes % 9.5; Neutrophils % 39.3; Platelet Count 340 x1000/uL (130-400); RBC 4.09 m/cumm (4.00-5.20); RBC Distribution Width 13.1 % (11.7-14.6); White Blood Cell Count 7.26 k/cumm (4.4-10.8)
[2019-11-09 10:28] LABS: Albumin 61.3 % (55.8-66.1); Immunotyping, Serum (See Note); Total Protein 6.6 g/dL (6.3-8.2)
== END 2019-11-05 13:47 ==
LOC: NCHCN 13:27
PROVIDERS: PCP Internal Medicine; Visit Provider Internal Medicine
DX: C83.00 Small cell B-cell lymphoma, unspecified site (principal)
CPT/HCPCS: 80053; 83615; 84155; 84165; 85025; 85610; 86320

== ENCOUNTER 2020-02-07 10:30 | Outpatient (CLI) | payer BC, SELFPAY ==
--- NOTE | 2020-02-07 10:15 | DI.RAD_ITS ---
EXAM: XR KNEE LT 2V AP,LAT INDICATION: annual f/u s/p TKA. COMPARISON: CR XR knee LT 1V from 02/15/2019 TECHNIQUE: 2D digital imaging was performed. FINDINGS: There has been no change in the appearance of left knee prosthesis or surrounding bone. DATA REPOSITORY: RADIATION DOSE DELIVERED:
== END 2020-02-07 10:50 ==
PROVIDERS: PCP Internal Medicine; Referring Provider Internal Medicine; Visit Provider Student in an Organized Health Care Education/Training Program
DX: Z96.652 Presence of left artificial knee joint (principal)
CPT/HCPCS: 73560

== ENCOUNTER 2020-09-08 14:58 | Outpatient (REF) | payer BC, SELFPAY ==
[2020-09-08 18:54] LABS: HCT 37.1 % (36.0-46.0); HGB 13.1 g/dL (11.2-15.7); MCH 34.8 pg (27.0-33.0); MCHC 35.3 % (32.0-36.0); MCV 98.7 fL (80-95); MPV 10.9 fL (8.0-11.0); Platelet Count 289 10^3/uL (130-400); RBC 3.76 10^6/uL (3.93-5.22); RDW 13.5 % (11.7-14.6); RDW-SD 47.6 fL
[2020-09-08 19:18] LABS: ALT 25 U/L (14-59); Ferritin 34 ng/mL (8-252)
== END 2020-09-08 14:59 | disposition home or self-care (01) ==
LOC: NCHCN 14:58
PROVIDERS: PCP Internal Medicine; Visit Provider Internal Medicine
DX: D64.9 Anemia, unspecified (principal); K92.2 Gastrointestinal hemorrhage, unspecified; L57.0 Actinic keratosis
CPT/HCPCS: 85027; 82728; 84460

== ENCOUNTER 2021-04-24 16:17 | Outpatient (REF) | payer BC, SELFPAY ==
[2021-04-24 20:14] LABS: Abs Immature Grans 0.02 10^3/uL (0.0-0.06); Absolute Basophil Count 0.06 10^3/uL (0.0-0.2); Absolute Lymphocyte Count 3.55 10^3/uL (1.2-3.4); Absolute Monocyte Count 0.57 10^3/uL (0.1-0.8); Absolute Neutrophil Count 4.42 10^3/uL (1.2-6.7); Basophils % 0.7; Eosinophils % 4.4; HCT 39.8 % (36.0-46.0); HGB 13.7 g/dL (11.2-15.7); Immature Grans % 0.2; Lymphocytes % 39.4; MCH 33.5 pg (27.0-33.0); MCHC 34.4 % (32.0-36.0); MCV 97.3 fL (80-95); Monocytes % 6.3; Nucleated RBC 0 %; Platelet Count 306 10^3/uL (130-400); RBC 4.09 10^6/uL (3.93-5.22); RDW 12.8 % (11.7-14.6); RDW-SD 45.2 fL; WBC 9.02 10^3/uL (4.4-10.8)
[2021-04-24 21:15] LABS: ALT 30 U/L (14-59); AST 19 U/L (15-37); Alkaline Phosphatase 61 U/L (46-116); BUN 18 mg/dL (7-18); Bilirubin, Total 0.5 mg/dL (0.2-1.0); CREATININE 0.6 mg/dL (0.55-1.02); Calcium 9.3 mg/dL (8.5-10.1); Chloride 107 mmol/L (98-107); Glucose 102 mg/dL (74-106); Potassium 4.3 mmol/L (3.5-5.1); Sodium 144 mmol/L (136-145); Total Protein 7.2 g/dL (6.4-8.2)
[2021-04-24 21:20] LABS: Troponin I < 0.05 ng/mL (<0.06)
== END 2021-04-24 16:18 | disposition home or self-care (01) ==
LOC: NCHCN 16:17
PROVIDERS: PCP Internal Medicine; Visit Provider Physician Assistant
DX: D64.9 Anemia, unspecified (principal); R42 Dizziness and giddiness
CPT/HCPCS: 80053; 84484; 85025

== ENCOUNTER 2021-07-04 14:55 | Outpatient (REF) | payer BC, SELFPAY ==
[2021-07-04 21:10] LABS: HCT 38.3 % (36.0-46.0); HGB 12.8 g/dL (11.2-15.7); MCH 33.3 pg (27.0-33.0); MCHC 33.4 % (32.0-36.0); MCV 99.7 fL (80-95); MPV 10.6 fL (8.0-11.0); Platelet Count 359 10^3/uL (130-400); RBC 3.84 10^6/uL (3.93-5.22); RDW-SD 45.9 fL; WBC 8.23 10^3/uL (4.4-10.8)
[2021-07-04 21:21] LABS: ALT 41 U/L (14-59); AST 21 U/L (15-37); Albumin 3.5 g/dL (3.4-5.0); Alkaline Phosphatase 66 U/L (46-116); BUN 24 mg/dL (7-18); Bilirubin, Total 0.4 mg/dL (0.2-1.0); CREATININE 0.7 mg/dL (0.55-1.02); Calcium 8.6 mg/dL (8.5-10.1); Chloride 105 mmol/L (98-107); Glucose 104 mg/dL (74-106); Potassium 4.5 mmol/L (3.5-5.1); Sodium 142 mmol/L (136-145)
== END 2021-07-04 14:56 | disposition home or self-care (01) ==
LOC: NCHCN 14:55
PROVIDERS: PCP Internal Medicine; Visit Provider Physician Assistant
DX: D64.9 Anemia, unspecified (principal)
CPT/HCPCS: 80053; 85027

== ENCOUNTER 2022-07-18 15:19 | Outpatient (REF) | payer SELFPAY ==
[2022-07-18 18:50] LABS: HCT 39.5 % (36.0-46.0); MCH 35.1 pg (27.0-33.0); MCHC 35.4 % (32.0-36.0); MCV 99 fL (80-95); Platelet Count 313 10^3/uL (130-400); RBC 3.99 10^6/uL (3.93-5.22); RDW 12.5 % (11.7-14.6); RDW-SD 43.6 fL; WBC 8.24 10^3/uL (4.4-10.8)
[2022-07-18 19:14] LABS: Glucose 104 mg/dL (74-106); TSH 3.42 uIU/mL (0.36-3.74)
== END 2022-07-18 15:20 | disposition home or self-care (01) ==
LOC: NCHCN 15:19
PROVIDERS: PCP Internal Medicine; Visit Provider Internal Medicine
DX: R42 Dizziness and giddiness (principal); E66.8 Other obesity; R06.02 Shortness of breath
CPT/HCPCS: 82947; 85027; 84443

== ENCOUNTER → 2023-12-22 13:57 | Outpatient (BNVA) | payer MEDICARE, SELFPAY | PROVIDERS: PCP Internal Medicine; Referring Provider Internal Medicine; Visit Provider Student in an Organized Health Care Education/Training Program | DX: G56.02 Carpal tunnel syndrome, left upper limb (principal) | CPT/HCPCS: 99203 ==

== ENCOUNTER 2024-01-07 06:55 | Day surgery (SDC) | payer MEDICARE, SELFPAY ==
[2024-01-07 06:31] VITALS: BP 139/73; PULSE 72; RESP 16; TEMP 36.4; O2SAT 96
--- NOTE | 2024-01-07 07:01 | W.ANESPRE ---
General Info Date of Service Date Performed: 01/07/24 Height: 5 ft 6 in Weight: 93.1 kg Body Mass Index (BMI): 33.1 Surgical Procedure: Operation Date: 01/07/24 07:40 Proposed Procedure Side Surgeon p Wrist ECTR Left Cassius Obando MD Meds Allergies and Home Medications Allergies Allergy/AdvReac Type Severity Reaction Status Date / Time Penicillins Allergy Severe Anaphylaxsi Verified 01/07/24 06:43 s Cephalosporins Allergy Intermediate Skin Rash Verified 01/07/24 06:43 Home Medication ?Medication ?Instructions ?Recorded multivitamin 1 tab PO DAILY 04/09/18 Current Visit Medications: Current Medications Generic Name Dose Route Start Last Admin Trade Name Freq PRN Reason Stop Dose Admin IV Miscellaneous Supplies 1 each 01/07/24 06:00 Iv Access IV 02/05/24 23:59 DIRECTED JULIANNA Sodium Chloride 0 ml 01/07/24 06:00 Normal Saline Flush 10 Ml Syr IV 02/05/24 23:59 PRN PRN Sodium Chloride 0 ml 01/07/24 06:00 Normal Saline 10 Ml Vial IJ 02/05/24 23:59 DIRECTED PRN Sterile Water 0 ml 01/07/24 06:00 Water,Injection,Sterile 10 Ml Vial IJ 02/05/24 23:59 DIRECTED PRN PFSH Active Problems Active Problems: Problem Status Onset Code Rupture of right proximal biceps tendon Acute ~12/08/23 S46.211A Left carpal tunnel syndrome Acute G56.02 Iliotibial band syndrome, left leg Acute M76.32 Thoracic outlet syndrome of right thoracic outlet Acute G54.0 Right rotator cuff tear Acute M75.101 Arthritis of right acromioclavicular joint Acute M19.011 Atrial fibrillation Chronic I48.91 Medical History Medical History Left foot drop mild; residual Borderline hypertension Surgical History Surgical History History of hernia repair Right carpal tunnel syndrome S/P ECTR DOS: 11/17/2018 S/P small bowel resection H/O lumbosacral spine surgery L4-5 discectomy, 1982; residual mild left foot drop Tobacco Smoking/Tobacco Use Status: Never Alcohol Alcohol Intake: current Alcohol intake frequency: holidays/special occasions only Alcohol type: wine Substance Use Substance use: Never Substance use type: does not use Vital Signs and Lab Results Vital Signs Most Recent Vital Signs in EMR: Most Recent Vital Signs Temp Pulse Resp BP Pulse Ox 36.4 C L 72 16 139/73 96 01/07/24 06:31 01/07/24 06:31 01/07/24 06:31 01/07/24 06:31 01/07/24 06:31 Lab Results Blood Type / Crossmatch: No Data to Display Complete Blood Count: No Data to Display Complete Metabolic Panel: No Data to Display Liver Function Panel: No Data to Display Coagulation Panel: No Data to Display Cardiac Panel: No Data to Display Arterial Blood Gas: No Data to Display Venous Blood Gas: No Data to Display Pancreas Panel: No Data to Display Thyroid Panel: No Data to Display Infectious Disease: No Data to Display Blood Cultures: No Data to Display Toxicology Panel: No Data to Display Anesthesia Assessment and Plan Implantable Cardiac Device Does patient have a Pacemaker or an ICD?: No
--- NOTE | 2024-01-07 07:15 | W.PM.DSUDISC ---
Date of service: 01/07/24 Time of Service: 07:15 Discharge Plan Disposition Patient Disposition: Home Condition: Good Discharge Details Reason For Visit: L ECTR Attending Provider: Cassius Obando Primary Care Provider: Glynn Eubanks Home Meds and New Rx's Prescriptions: New hydrocodone-acetaminophen 5-325 mg tablet 1 tab PO Q6H PRN (Reason: pain) Qty: 4 0RF acetaminophen 500 mg tablet 1,000 mg PO TID Qty: 90 0RF ibuprofen 600 mg tablet 600 mg PO TID PRN (Reason: pain) Qty: 90 0RF Continued multivitamin tablet 1 tab PO DAILY Discharge Instructions Stand Alone Forms: Dale Addison (DSU), Gisella Degroot Tunnel Release Referrals: Cassius Obando MD [ [facility] STAFF PHYSICIAN] - 01/16/24 11:00 am Activity:: Activity as Tolerated Remove Dressings/Wound Care:: 48 hours Shower/Bathe:: 48 hours Diet:: As Tolerated Discharge Orders Discharge Orders: Discharge Order (Routine); Ordered 01/07/24 Ordered By: Abhilash Carson DS: Diagnosis Discharge Diagnosis (1) Left carpal tunnel syndrome: Status: Acute
[2024-01-07] MEDS: Lidocaine 1% Multi-Dose W/EPI 1/100,000 50 ML VIAL (07:40)
[2024-01-07 08:02] VITALS: BP 146/69; PULSE 63; RESP 16; TEMP 36.1; O2SAT 96
--- NOTE | 2024-01-07 08:22 | W.PM.OP ---
Date of service: 01/07/24 Time of Service: 07:35 Operative Note Operative Note DATE OF PROCEDURE: 01/07/24 PRE-OP DIAGNOSIS: Left Carpal Tunnel Syndrome POST-OP DIAGNOSIS: same PROCEDURE: Left Endoscopic Carpal Tunnel Release SURGEON: Cassius Obnado ANESTHESIA TYPE: Local By Surgeon Refer to Anesthesia Record ESTIMATED BLOOD LOSS: 0 PATHOLOGY: none sent TOURNIQUET TIME: 6 COMPLICATIONS: None Patient was transported to: same day Patient's condition: stable Indications: I have seen Lorelei in clinic for symptoms of carpal tunnel syndrome. The numbness, tingling, and pain limited function. Clinical exam findings with nerve conduction tests confirmed the diagnosis of carpal tunnel syndrome. Nonoperative measures such as bracing, time, activity modifications had been tried but disability and pain persisted. I discussed carpal tunnel release with the patient. I reviewed the risks of the procedure to include, but not limited to, bleeding, infection, pain, stiffness, incomplete release, damage to nerves or vessels, persistent numbness, recurrence. Despite these risks, the patient elected to proceed. Findings: There was tightened carpal tunnel. This was dilated and released successfully with the endoscopic with increased space within the tunnel. The antebrachial fascia was released proximally freeing the median nerve at the wrist. Procedure Description: Lorelei was greeted in the preoperative holding area where the correct side was identified and marked. The consent was reviewed with the patient and signed. The history and physical was updated. All questions were answered. She was taken back to the operating room. The patient was placed into the supine position on the operating room table with the left arm on an arm board. A nonsterile tourniquet was placed high onto the arm. All bony prominences were well padded. Prophylactic antibiotics in the form of Cefazolin were administered. The left arm was then prepped with Chloraprep and draped in a standard fashion with stockinette and extremity drape. A timeout to confirm correct identity, side and site, procedure, allergies, anesthesia, and medical concerns was performed. The surgical site was marked in the volar wrist creases in line with the radial border of the fourth ray. This area was anesthetized with approximately 10cc of 1% Lidocaine with epinephrine. I ensured anesthesia to the wrist/palm prior to proceeding. The limb was then exsanguinated with an Esmarch. The skin was incised with a 15 blade, approximately 1cm. The skin only was cut and the deeper tissue was dissected bluntly with a tenotomy scissor, avoiding passing nerve and venous structures. The fascia was penetrated and opened bluntly. A two-prong skin hook was placed under this proximal fascial edge. A series of hamate finders were used to identify and dilate the carpal tunnel. Synovial elevator was used to free synovial attachments to the underside of the transverse carpal ligament. My thumb was kept in the palm to gloria the distal extent of the carpal tunnel and correctly position the hand. The Microaire endoscope was inserted without difficulty and without resistance. Excellent visualization showed horizontally running fibers of the transverse carpal ligament (TCL). The distal extent of the TCL was visualized and the end of the scope palpated with the thumb. The blade was elevated and withdrawn from distal to proximal. The TCL was split into two flaps. The endoscope was reinserted to confirm complete release and any remnant ligament was incised. The scope was withdrawn and the proximal aspect of the carpal tunnel was grossly inspected and appeared release with the median nerve visible. The antebrachial fascia at the level of the wrist was then freed from the overlying skin and then the underlying median nerve with blunt dissection. This was transected longitudinally for about 3cm proximal to the wrist incision. The wound was then irrigated with easy flow of irrigant distally and proximally. The incision was closed with a single 4-0 Nylon suture. The wound was dressed with Xeroform, Gauze, Kerlix and Gerard. The tourniquet was deflated with the initial dressing and held with some pressure. Blood flow returned easily to all digits with capillary refill less than 2 seconds. The patient tolerated the procedure well and was returned to the Same Day Surgery area in a stable condition suffering no known complication.
== END 2024-01-07 08:16 | disposition home or self-care (01) ==
PROVIDERS: PCP Internal Medicine; Visit Provider Student in an Organized Health Care Education/Training Program
PROC: 01N54ZZ Release Median Nerve, Percutaneous Endoscopic Approach (ICD-10-PCS; CPT 29848; principal; 2024-01-07 07:30)
DX: G56.02 Carpal tunnel syndrome, left upper limb (principal)
CPT/HCPCS: 29848; J2004

== ENCOUNTER → 2024-01-13 01:00 | Outpatient (CLI) | payer OTHER, SELFPAY ==
--- NOTE | 2024-01-13 07:30 | DI.MRI_ITS ---
Exam(s) MR UPPER JOINT RT WO EXAM: MR UPPER JOINT RT WO CLINICAL HISTORY: R SHOULDER PAIN, ? RTC TEAR,RUPTURE RT PROX BICEPS TENDON,[id number]. TECHNIQUE: Multiplanar multisequence MRI was performed. COMPARISON: No exams were available for comparison FINDINGS: BONES: There is no fracture or contusion pattern. JOINTS: There are moderately severe degenerative changes seen at the acromioclavicular joint. There is loss of the articular cartilage in osteophytes seen at the glenohumeral joint. There is a small j oint effusion. TENDONS: Supraspinatus: The supraspinatus tendon is thickened and shows intermediate signal consistent with te ndinosis. No evidence of a supraspinatus tendon tear. Infraspinatus: Unremarkable. Subscapularis: There is tendinosis of the subscapularis tendon. Teres [place]: Unremarkable. Biceps and [place]: There is medial subluxation of the biceps tendon. The long head of the biceps is poorly defined and has a wavy contour suspicious for at least a partial tear. MUSCLES: Unremarkable. GLENOID LABRUM: There is some hyperintense signal seen beneath the labrum at its posterior superior a spect suspicious for tear. This may best be evaluated with a MR arthrogram. SOFT TISSUES: Unremarkable. LIGAMENTS: Unremarkable. OTHER: There is fluid seen in the subacromial subdeltoid bursa. IMPRESSION: 1. Findings suspicious for at least a partial tear of the long head of the biceps tendon with medial subluxation of the biceps tendon. 2. Tendinosis of the supraspinatus and subscapularis tendons without definite tear. 3. Hyperintense signal seen beneath the posterior superior labrum suspicious for tear. MR arthrogram may be obtained for further evaluation. 4. Fluid seen in the subacromial subdeltoid bursa. This may represent a bursitis. 5. Degenerative changes seen at the acromioclavicular and glenohumeral joints. DATA REPOSITORY:
== END ==
PROVIDERS: PCP Internal Medicine; Visit Provider Student in an Organized Health Care Education/Training Program
DX: S46.211A Strain of muscle, fascia and tendon of other parts of biceps, right arm, initial encounter (principal)
CPT/HCPCS: 73221

== ENCOUNTER → 2024-01-15 09:02 | Outpatient (BNVA) | payer MEDICARE, SELFPAY | PROVIDERS: PCP Internal Medicine; Referring Provider Internal Medicine; Visit Provider Student in an Organized Health Care Education/Training Program | DX: Z47.89 Encounter for other orthopedic aftercare (principal); R60.0 Localized edema ==

== ENCOUNTER 2024-01-29 15:24 | Outpatient (CLI) | payer MEDICARE, SELFPAY ==
--- NOTE | 2024-01-29 10:30 | DI.RAD_ITS ---
Exam(s) XR WRIST LT COMPLETE EXAM: XR WRIST LT COMPLETE CLINICAL HISTORY: LEFT WRIST PAIN. TECHNIQUE: 2D digital imaging was performed. COMPARISON: No exams were available for comparison FINDINGS: 3 views No evidence of fracture nor dislocation nor significant ulnar variance. There are advanced degenerative changes in the 1st carpometacarpal joint. There is also a subarticul ar cyst in the lateral aspect of the lunate bone. Scapholunate distance is normal. IMPRESSION: Degenerative changes as above. Most prominent at the 1st carpometacarpal joint DATA REPOSITORY: RADIATION DOSE DELIVERED:
== END 2024-01-29 15:25 | disposition home or self-care (01) ==
LOC: DIORS 15:25
PROVIDERS: PCP Internal Medicine; Referring Provider Internal Medicine; Visit Provider Physician Assistant
DX: Z47.89 Encounter for other orthopedic aftercare; M25.542 Pain in joints of left hand
CPT/HCPCS: 73110

== ENCOUNTER → 2024-03-15 09:49 | Outpatient (BNVA) | payer MEDICARE, SELFPAY | PROVIDERS: PCP Internal Medicine; Referring Provider Internal Medicine | DX: Z47.89 Encounter for other orthopedic aftercare (principal); R29.898 Other symptoms and signs involving the musculoskeletal system; M18.12 Unilateral primary osteoarthritis of first carpometacarpal joint, left hand ==